=== PATIENT | female | born 1980 | race Caucasian/White ===

== ENCOUNTER 2019-02-22 18:21 | Emergency (ER) | payer MEDICAID ==
[~2019-02-22] VITALS: Ht 167.6 cm; Wt 71.4 kg
[2019-02-22] MEDS ORDERED: CITA10TA68 PO (18:52)
[2019-02-22] MEDS ORDERED: BUSP15 PO (18:52)
[2019-02-22] MEDS ORDERED: ACYCLOVIR 200 MG CAPSULE PO ONE (20:00)
[2019-02-22] MEDS ORDERED: PROPARACAINE HCL 0.5% 15 ML OPHTHALMIC SOLUTION OS ONE (20:00)
[2019-02-22] MEDS ORDERED: PredniSONE 20 MG TABLET PO ONE (20:00)
[2019-02-22] MEDS ORDERED: FLUORESCEIN SODIUM 1 MG STRIP OS ONE (20:00)
[2019-02-22] MEDS ORDERED: KETOROLAC TROMETHAMINE 30 MG/ML VIAL IM ONE (20:00)
[2019-02-22 21:27] VITALS: BP 112/68
== END 2019-02-22 21:35 | disposition home or self-care (01) ==
LOC: EMS 18:26
DX: B02.9 Zoster without complications (principal); R51 Headache; F41.9 Anxiety disorder, unspecified; F12.90 Cannabis use, unspecified, uncomplicated; Z88.8 Allergy status to other drugs, medicaments and biological substances
CPT/HCPCS: 96372; 99284; J1885

== ENCOUNTER 2020-10-06 23:13 | Emergency (ER) | payer MEDICAID ==
[~2020-10-06] VITALS: Ht 167.6 cm; Wt 68.2 kg
[~2020-10-06 23:13] MED LIST: BUSP15 PO; CITA10TA99 PO
[2020-10-06 23:19] VITALS: BP 114/67
== END 2020-10-07 00:30 | disposition left against medical advice (07) ==
LOC: EMS 23:14
DX: S00.11XA Contusion of right eyelid and periocular area, initial encounter (principal); F41.9 Anxiety disorder, unspecified; F12.90 Cannabis use, unspecified, uncomplicated; Z88.8 Allergy status to other drugs, medicaments and biological substances; W50.0XXA Accidental hit or strike by another person, initial encounter; Y93.89 Activity, other specified; Y92.89 Other specified places as the place of occurrence of the external cause; Y99.8 Other external cause status
CPT/HCPCS: 99282; Z7502

== ENCOUNTER 2021-02-07 11:53 | Emergency (ER) | payer MEDICAID ==
[~2021-02-07] VITALS: Ht 170.2 cm; Wt 70.5 kg
[2021-02-07 11:54] VITALS: BP 103/46
== END 2021-02-07 14:20 | disposition left against medical advice (07) ==
LOC: EMS 12:00
DX: S01.511A Laceration without foreign body of lip, initial encounter (principal); Z53.21 Procedure and treatment not carried out due to patient leaving prior to being seen by health care provider; W45.8XXA Other foreign body or object entering through skin, initial encounter; Y93.89 Activity, other specified; Y92.89 Other specified places as the place of occurrence of the external cause; Y99.8 Other external cause status